=== PATIENT | female | born 1995 | race Two or more races ===

== ENCOUNTER 2019-06-20 03:32 | Emergency (ER) | payer SELFPAY ==
[~2019-06-20] VITALS: Ht 160 cm; Wt 54.4 kg
[2019-06-20] MEDS ORDERED: ONDANSETRON HCL/PF 4 MG/2 ML VIAL ONE (03:55)
[2019-06-20] MEDS ORDERED: ONDANSETRON HCL/PF 4 MG/2 ML VIAL IVP ONE (04:00)
[2019-06-20] MEDS ORDERED: IV NS 0.9% 1,000 ML BAG IV ONE (04:00)
[2019-06-20 04:09] LABS: BASOPHILS % (AUTO) 0.3 % (0.0-2.0); HEMATOCRIT 44 % (33-45); HEMOGLOBIN 14.8 g/dL (11.5-14.8); LYMPHOCYTES # (AUTO) 0.8 /CMM (0.8-4.8); LYMPHOCYTES % (AUTO) 7.3 % (20.0-44.0); MEAN CORPUSCULAR HGB CONC 34 g/dl (31.0-36.0); MEAN CORPUSCULAR VOLUME 89 fL (82-100); MONOCYTES # (AUTO) 0.5 /CMM (0.1-1.30); MONOCYTES % (AUTO) 4.6 % (2.0-12.0); NEUTROPHILS # (AUTO) 9.3 /CMM (1.8-8.9); NEUTROPHILS % (AUTO) 87.8 % (43.0-81.0); PLATELET COUNT (AUTO) 204 /CMM (150-450); RED BLOOD CELL COUNT(AUTO) 4.97 MIL/uL (4.0-5.2); WHITE BLOOD COUNT (AUTO) 10.6 K/uL (4.3-11.0)
--- NOTE | 2019-06-20 04:11 | NUR ---
PT CAME TO ER BED 4 C/O ABDOMINAL PAIN 08/28. PT STATES THAT SHE "FELT SICK" SINCE YESTERDAY NIGHT. PT STATES THAT SHE HAS BEEN FEELING NAUSEOUS AND VOMITING W/ WATERY LOOSE STOOLS. PT DENIES VOMITING BLOOD. STATES THAT SHE AND HER BOYFRIEND HAD A BURGER AND FELT SICK PROBABLY BECAUSE OF IT. AAOX4. NO SOB. BREATHING EVENLY AND UNLABORED ON ROOM AIR. CONNECTED TO MONITOR.
[2019-06-20 04:15] LABS: CALCIUM, SERUM 9.1 mg/dL (8.5-10.1); CREATININE 0.8 mg/dL (0.6-1.3); POTASSIUM 3.6 mmol/L (3.5-5.1)
[2019-06-20 04:51] VITALS: BP 122/76
--- NOTE | 2019-06-20 04:51 | NUR ---
IV removed. Catheter intact and site benign. Pressure and 4x4 applied to site. No bleeding noted. Patient discharged to home in stable condition. Written and verbal after care instructions given. Patient verbalizes understanding of instruction.
== END 2019-06-20 04:51 | disposition home or self-care (01) ==
LOC: ER 03:36
DX: K52.9 Noninfective gastroenteritis and colitis, unspecified (principal); R11.2 Nausea with vomiting, unspecified
CPT/HCPCS: 36415; 80048; 84703; 85025; 96361; 96374; 99283; J2405